=== PATIENT | male | born 1965 | race African-American/Black ===

== ENCOUNTER 2024-06-21 04:55 | Inpatient (IN) | payer MEDICARE, OTHER ==
[~2024-06-21] VITALS: Ht 175.3 cm; Wt 88.5 kg
[2024-06-21 05:53] LABS: BASOPHILS % (AUTO) 0.5 % (0.0-2.0); EOSINOPHILS # (AUTO) 0.1 K/uL (0.0-0.7); EOSINOPHILS % (AUTO) 1.4 % (0.0-6.0); HEMATOCRIT 31 % (39-51); HEMOGLOBIN 10.1 g/dL (13.5-17.5); LYMPHOCYTES # (AUTO) 1.3 K/uL (0.8-4.8); LYMPHOCYTES % (AUTO) 20.4 % (20.0-44.0); MEAN CORPUSCULAR HEMOGLOBIN 28 PG (26.0-33.0); MEAN CORPUSCULAR HGB CONC 33 g/dl (31.0-36.0); MEAN CORPUSCULAR VOLUME 85 fL (80-96); MONOCYTES # (AUTO) 0.5 K/uL (0.1-1.30); MONOCYTES % (AUTO) 7.5 % (2.0-12.0); NEUTROPHILS # (AUTO) 4.6 K/uL (1.8-8.9); NEUTROPHILS % (AUTO) 70.2 % (43.0-81.0); PLATELET COUNT (AUTO) 350 K/uL (150-450); RED CELL DISTRIBUTION WIDTH 16.6 % (11.5-15.0); WHITE BLOOD COUNT (AUTO) 6.6 K/uL (4.3-11.0)
[2024-06-21 06:07] LABS: CALCIUM, SERUM 9.5 mg/dL (8.5-10.1); CARBON DIOXIDE 30 mmol/L (21-32); CHLORIDE 99 mmol/L (98-107); GLUCOSE 92 mg/dL (74-106); POTASSIUM 3.5 mmol/L (3.5-5.1); SODIUM SERUM 136 mmol/L (136-145); UREA NITROGEN, BLOOD 15 mg/dL (7-18)
[2024-06-21 06:13] LABS: ALANINE AMINOTRANSFERASE 24 U/L (12-78); ALBUMIN 3.7 g/dL (3.4-5.0); ALCOHOL, BLOOD < 3 mg/dL (0-10); ALKALINE PHOSPHATASE 64 U/L (46-116); ASPARTATE AMINOTRANSFERASE 30 U/L (15-37); BILIRUBIN,DIRECT 0.2 mg/dL (0.0-0.2); BILIRUBIN,TOTAL 0.6 mg/dL (0.2-1.0); TOTAL PROTEIN, SERUM 7.7 g/dL (6.4-8.2)
[2024-06-21 06:20] LABS: ACETAMINOPHEN <10 ug/ml (10-30); SALICYLATE 0.6 mg/dL (2.8-20.0)
[2024-06-21 06:44] LABS: APPEARANCE,URINE CLEAR (CLEAR); BILIRUBIN,URINE 1+ (NEGATIVE); BLOOD, URINE TRACE-INTA Ery/uL (NEGATIVE); COLOR,URINE DARK YELLOW (YELLOW); KETONES,URINE 1+ mg/dL (NEGATIVE); LEUKOCYTE ESTERASE ,URINE NEGATIVE (NEGATIVE); NITRITE, URINE NEGATIVE (NEGATIVE); PROTEIN,URINE 1+ mg/dl (NEGATIVE); UGLUCOSE NEGATIVE (NEGATIVE); UROBILINOGEN,URINE 0.2 EU/dL (0.2)
[2024-06-21 06:54] LABS: AMPHETAMINE, URINE NEGATIVE (NEGATIVE); BARBITURATE, URINE NEGATIVE (NEGATIVE); BENZODIAZEPINE, URINE NEGATIVE (NEGATIVE); CANNABINOID, URINE NEGATIVE (NEGATIVE); COCCAINE, URINE NEGATIVE (NEGATIVE); OPIATE, URINE NEGATIVE (NEGATIVE); PHENCYCLIDINE SCREEN,URINE NEGATIVE (NEGATIVE)
[2024-06-21 07:07] LABS: ADD URINE CULTURE NO; BACTERIA,URINE Rare /HPF (None Seen); SQUAMOUS EPITHELIAL CELL,UR Few /HPF (None Seen); WBC,URINE 0-2 /HPF (0-3)
[2024-06-21] MEDS ORDERED: ACET-868 PO (11:25)
[2024-06-21] MEDS ORDERED: NA P133E RC (11:25)
[2024-06-21] MEDS ORDERED: BISA10SU11 RC (11:25)
[2024-06-21] MEDS ORDERED: ARIP5TAB10 PO (11:25)
[2024-06-21] MEDS ORDERED: DOCU100T2 PO (11:25)
[2024-06-21] MEDS ORDERED: HYDR-4209 PO (11:25)
[2024-06-21] MEDS ORDERED: FAMO20TA80 PO (11:25)
[2024-06-21] MEDS ORDERED: LEVE1000 PO (11:25)
[2024-06-21] MEDS ORDERED: MAGN400O6 PO (11:25)
[2024-06-21] MEDS ORDERED: AMLO10TA4 PO (11:25)
[2024-06-21] MEDS ORDERED: CRAN200C PO (11:25)
[2024-06-21] MEDS ORDERED: HYDR-4303 PO (11:25)
[2024-06-21] MEDS ORDERED: MAG HYDROX/AL HYDROX/SIMETH 30 ML UDC PO PRN (12:30)
[2024-06-21] MEDS: BLOOD SUGAR DIAGNOSTIC 1 EACH STRIP IN ONE (12:39)
[2024-06-21 13:21] VITALS: BP 148/83; TEMP 98.2; O2SAT 98
[2024-06-21 16:00] VITALS: BP 156/92; TEMP 98.6; O2SAT 98
[2024-06-21 20:00] VITALS: BP 168/88; TEMP 98.4; O2SAT 100
[2024-06-21] MEDS ORDERED: HYDROCODONE/APAP 5/325MG TABLET PO PRN ×2 (20:30)
[2024-06-21] MEDS: FAMOTIDINE (20 MG) 20 MG TABLET PO SCH (22:05)
[2024-06-21] MEDS: LEVETIRACETAM (250 MG) 250 MG TABLET PO SCH (22:05)
[2024-06-21] MEDS: NITROFURANTOIN/MONOHYDRATE MACROCRYSTALS 100 MG CAPSULE PO SCH (23:39)
[2024-06-22 07:52] LABS: CREATININE 0.8 mg/dL (0.6-1.3)
[2024-06-22 07:54] LABS: CHOLESTEROL 126 mg/dL (<200); HDL CHOLESTEROL 47 mg/dL (40-60); LDL 70 mg/dL (0-99); TRIGLYCERIDES 19 mg/dL (30-150)
[2024-06-22 07:57] LABS: ALBUMIN 3.8 g/dL (3.4-5.0); BILIRUBIN,TOTAL 0.5 mg/dL (0.2-1.0); CALCIUM, SERUM 9.4 mg/dL (8.5-10.1); CREATININE 0.8 mg/dL (0.6-1.3); POTASSIUM 3.9 mmol/L (3.5-5.1)
[2024-06-22 08:00] VITALS: BP 155/90; TEMP 97.7; O2SAT 98
[2024-06-22] MEDS: DOCUSATE SODIUM 100 MG CAPSULE PO SCH (08:16)
[2024-06-22] MEDS: AMLODIPINE BESYLATE 10 MG TABLET PO SCH (08:16)
[2024-06-22] MEDS ORDERED: ARIPIPRAZOLE 5 MG TABLET PO SCH (09:00)
[2024-06-22] MEDS ORDERED: Medication Not On Formulary EA (Cranberry Extract (Cranberry) 450 MG) PO SCH (09:00)
[2024-06-22] MEDS: risperiDONE 1 MG TABLET PO SCH (12:45)
[2024-06-22] MEDS: BENZTROPINE MESYLATE (1 MG) 1 MG TABLET PO SCH (12:46)
[2024-06-22 16:00] VITALS: BP 151/91; TEMP 98.4; O2SAT 99
[2024-06-22 20:27] VITALS: BP 154/98; TEMP 98.4; O2SAT 99
[2024-06-23 08:00] VITALS: BP 112/76; TEMP 97.8; O2SAT 98
[2024-06-23 16:00] VITALS: BP 120/82; TEMP 98.2; O2SAT 97
[2024-06-23 20:40] VITALS: BP 147/90; TEMP 98; O2SAT 100
[2024-06-23] MEDS: risperiDONE 1 MG TABLET PO SCH (21:17)
[2024-06-23] MEDS: TEMAZEPAM 7.5 MG CAPSULE PO PRN (23:43)
[2024-06-24 08:00] VITALS: BP 114/86; TEMP 98.7; O2SAT 100
[2024-06-24] MEDS: MAGNESIUM HYDROXIDE 30 ML UDC PO PRN (10:01)
[2024-06-24 16:00] VITALS: BP 124/99; TEMP 97.8; O2SAT 99
[2024-06-24 20:17] VITALS: BP 147/90; TEMP 98.3; O2SAT 97
[2024-06-25 08:00] VITALS: BP 147/85; TEMP 98.7; O2SAT 100
[2024-06-25] MEDS: LORAZEPAM 0.5 MG TABLET PO PRN (08:53)
[2024-06-25 16:00] VITALS: BP 139/89; TEMP 97.9; O2SAT 100
[2024-06-25] MEDS: risperiDONE 1 MG TABLET PO SCH ×2 (16:53→21:36)
[2024-06-25 20:11] VITALS: BP 125/91; TEMP 98.3; O2SAT 100
[2024-06-26 08:00] VITALS: BP 139/87; TEMP 98.7; O2SAT 100
[2024-06-26 16:00] VITALS: BP 119/80; TEMP 98.6; O2SAT 99
[2024-06-26 20:09] VITALS: BP 116/76; TEMP 98.8; O2SAT 100
[2024-06-27 08:00] VITALS: BP 136/85; TEMP 98; O2SAT 100
[2024-06-27 16:00] VITALS: BP 140/93; TEMP 97.9; O2SAT 99
[2024-06-27 20:00] VITALS: BP 125/84; TEMP 97.7; O2SAT 100
[2024-06-27] MEDS: risperiDONE 1 MG TABLET PO SCH (21:13)
[2024-06-28 08:00] VITALS: BP_SYST 157; TEMP 98; O2SAT 100
[2024-06-28 16:11] VITALS: BP_SYST 145; BP_DIAS 74; BP_DIAS 94; TEMP 97.8; TEMP 98.7; O2SAT 98
[2024-06-28 20:00] VITALS: BP 128/81; TEMP 98.3; O2SAT 100
[2024-06-29 08:00] VITALS: BP 129/85; TEMP 97.9; O2SAT 100
[2024-06-29 16:00] VITALS: BP 124/78; TEMP 98.3; O2SAT 100
[2024-06-29 21:31] VITALS: BP 166/94; TEMP 98; O2SAT 98
[2024-06-30 08:00] VITALS: BP 137/84; TEMP 98.1; O2SAT 98
[2024-06-30 16:22] VITALS: BP 147/79; TEMP 98.2; O2SAT 97
[2024-06-30 20:26] VITALS: BP 147/81; TEMP 98.4; O2SAT 98
[2024-07-01 08:00] VITALS: BP 138/86; TEMP 98.4; O2SAT 97
[2024-07-01] MEDS: risperiDONE 1 MG TABLET PO SCH (12:23)
[2024-07-01 16:00] VITALS: BP 136/75; TEMP 98.6; O2SAT 99
[2024-07-01 20:35] VITALS: BP 139/76; TEMP 98; O2SAT 98
[2024-07-02 08:00] VITALS: BP_SYST 132; BP_SYST 156; BP_DIAS 81; BP_DIAS 83; TEMP 97.8; TEMP 98.7; O2SAT 100; O2SAT 98
[2024-07-02] MEDS: BENZTROPINE MESYLATE (1 MG) 1 MG TABLET PO SCH (12:54)
[2024-07-02] MEDS: risperiDONE 1 MG TABLET PO SCH ×2 (12:54→17:04)
[2024-07-02] MEDS ORDERED: risperiDONE 1 MG TABLET PO SCH (13:00)
[2024-07-03 08:00] VITALS: BP 144/87; TEMP 97.9; O2SAT 97
[2024-07-03 16:00] VITALS: BP 132/83; TEMP 98; O2SAT 100
[2024-07-03 20:00] VITALS: BP 129/80; TEMP 98.1; O2SAT 100
[2024-07-04 08:00] VITALS: BP 137/78; TEMP 97.6; O2SAT 99
[2024-07-04 16:00] VITALS: BP 140/81; TEMP 97.9; O2SAT 97
[2024-07-05 08:00] VITALS: BP 137/83; TEMP 98; O2SAT 99
[2024-07-05 08:14] VITALS: BP 137/83
[2024-07-05] MEDS: ACETAMINOPHEN 325 MG TABLET PO PRN (13:45)
[2024-07-05 14:47] VITALS: TEMP 99
== END 2024-07-05 17:35 | DRG 885 ==
LOC: ER 05:05 → GPS 11:43
PROVIDERS: ADMIT Nurse Practitioner Psychiatric/Mental Health; ATTEND Nurse Practitioner Family
DX: F20.9 Schizophrenia, unspecified (principal); G93.41 Metabolic encephalopathy; N39.0 Urinary tract infection, site not specified; F39 Unspecified mood [affective] disorder; I10 Essential (primary) hypertension; Z20.822 Contact with and (suspected) exposure to COVID-19; E11.9 Type 2 diabetes mellitus without complications; K21.9 Gastro-esophageal reflux disease without esophagitis; D63.8 Anemia in other chronic diseases classified elsewhere; G40.909 Epilepsy, unspecified, not intractable, without status epilepticus; G89.29 Other chronic pain; Z87.820 Personal history of traumatic brain injury; Z91.81 History of falling; Z87.828 Personal history of other (healed) physical injury and trauma; Z79.899 Other long term (current) drug therapy; F29 Unspecified psychosis not due to a substance or known physiological condition; Z73.6 Limitation of activities due to disability; B96.89 Other specified bacterial agents as the cause of diseases classified elsewhere; G31.84 Mild cognitive impairment of uncertain or unknown etiology
CPT/HCPCS: 36415; 80048-TC; 80053-TC; 80061-TC; 80076-TC; 81001; 82565-TC; 85025-TC; 87086-TC; 97112-TC; 97116-TC; 97530-TC; G0480

== ENCOUNTER 2024-07-19 23:45 | Inpatient (IN) | payer MEDICARE, OTHER ==
[~2024-07-19] VITALS: Ht 167.6 cm; Wt 72.6 kg
[~2024-07-19 23:45] MED LIST: ACET-868 PO; AMLO10TA4 PO; ARIP5TAB10 PO; BISA10SU11 RC; CRAN200C PO; DOCU100T2 PO; FAMO20TA80 PO; HYDR-4209 PO; HYDR-4303 PO; LEVE1000 PO; MAGN400O6 PO; NA P133E RC
[2024-07-20 00:54] LABS: BASOPHILS % (AUTO) 0.7 % (0.0-2.0); EOSINOPHILS # (AUTO) 0.2 K/uL (0.0-0.7); EOSINOPHILS % (AUTO) 2.9 % (0.0-6.0); HEMATOCRIT 30 % (39-51); HEMOGLOBIN 9.6 g/dL (13.5-17.5); LYMPHOCYTES # (AUTO) 1.5 K/uL (0.8-4.8); LYMPHOCYTES % (AUTO) 26.6 % (20.0-44.0); MEAN CORPUSCULAR HEMOGLOBIN 27 PG (26.0-33.0); MEAN CORPUSCULAR HGB CONC 32 g/dl (31.0-36.0); MEAN CORPUSCULAR VOLUME 84 fL (80-96); MONOCYTES # (AUTO) 0.5 K/uL (0.1-1.30); MONOCYTES % (AUTO) 9.5 % (2.0-12.0); NEUTROPHILS # (AUTO) 3.5 K/uL (1.8-8.9); NEUTROPHILS % (AUTO) 60.3 % (43.0-81.0); PLATELET COUNT (AUTO) 479 K/uL (150-450); RED BLOOD CELL COUNT(AUTO) 3.55 MIL/uL (4.5-6.0); RED CELL DISTRIBUTION WIDTH 16.6 % (11.5-15.0); WHITE BLOOD COUNT (AUTO) 5.8 K/uL (4.3-11.0)
[2024-07-20 01:01] LABS: CARBON DIOXIDE 31 mmol/L (21-32); CHLORIDE 103 mmol/L (98-107); CREATININE 0.8 mg/dL (0.6-1.3); GLUCOSE 99 mg/dL (74-106); POTASSIUM 3.8 mmol/L (3.5-5.1); SODIUM SERUM 140 mmol/L (136-145); UREA NITROGEN, BLOOD 14 mg/dL (7-18)
[2024-07-20 01:09] LABS: ALANINE AMINOTRANSFERASE 27 U/L (12-78); ALBUMIN 3.4 g/dL (3.4-5.0); ALCOHOL, BLOOD < 3 mg/dL (0-10); ALKALINE PHOSPHATASE 51 U/L (46-116); ASPARTATE AMINOTRANSFERASE 20 U/L (15-37); BILIRUBIN,DIRECT 0.1 mg/dL (0.0-0.2); BILIRUBIN,TOTAL 0.2 mg/dL (0.2-1.0); TOTAL PROTEIN, SERUM 7.1 g/dL (6.4-8.2)
[2024-07-20 01:10] LABS: ACETAMINOPHEN <10 ug/ml (10-30)
[2024-07-20 02:00] LABS: AMPHETAMINE, URINE NEGATIVE (NEGATIVE); BARBITURATE, URINE NEGATIVE (NEGATIVE); BENZODIAZEPINE, URINE NEGATIVE (NEGATIVE); CANNABINOID, URINE NEGATIVE (NEGATIVE); COCCAINE, URINE NEGATIVE (NEGATIVE); OPIATE, URINE NEGATIVE (NEGATIVE); PHENCYCLIDINE SCREEN,URINE NEGATIVE (NEGATIVE)
[2024-07-20 02:09] LABS: APPEARANCE,URINE CLEAR (CLEAR); BILIRUBIN,URINE NEGATIVE (NEGATIVE); BLOOD, URINE NEGATIVE Ery/uL (NEGATIVE); COLOR,URINE YELLOW (YELLOW); KETONES,URINE NEGATIVE (NEGATIVE); LEUKOCYTE ESTERASE ,URINE NEGATIVE (NEGATIVE); NITRITE, URINE NEGATIVE (NEGATIVE); PROTEIN,URINE NEGATIVE (NEGATIVE); UGLUCOSE NEGATIVE (NEGATIVE); UROBILINOGEN,URINE 0.2 EU/dL (0.2)
[2024-07-20 03:43] VITALS: BP 125/78; TEMP 98; O2SAT 98
[2024-07-20] MEDS: BLOOD SUGAR DIAGNOSTIC 1 EACH STRIP IN ONE (03:50)
[2024-07-20] MEDS ORDERED: BENZ1TAB7 PO (03:59)
[2024-07-20] MEDS ORDERED: ACETAMINOPHEN 325 MG TABLET PO PRN (04:00)
[2024-07-20] MEDS ORDERED: LORAZEPAM 0.5 MG TABLET PO PRN (04:00)
[2024-07-20] MEDS ORDERED: TEMAZEPAM 7.5 MG CAPSULE PO PRN (04:00)
[2024-07-20] MEDS ORDERED: MAG HYDROX/AL HYDROX/SIMETH 30 ML UDC PO PRN (04:00)
[2024-07-20] MEDS ORDERED: MAGNESIUM HYDROXIDE 30 ML UDC PO PRN (04:00)
[2024-07-20] MEDS ORDERED: LORA-259 PO (04:02)
[2024-07-20] MEDS ORDERED: RISP1TAB97 PO (04:04)
[2024-07-20] MEDS ORDERED: RISP2TAB85 PO ×2 (04:05→04:06)
[2024-07-20 08:00] VITALS: BP 156/87; TEMP 98; O2SAT 100
[2024-07-20] MEDS: BENZTROPINE MESYLATE (1 MG) 1 MG TABLET PO SCH (09:37)
[2024-07-20] MEDS: risperiDONE 1 MG TABLET PO SCH ×2 (09:37→21:35)
[2024-07-20] MEDS ORDERED: HYDROCODONE/APAP 5/325MG TABLET PO PRN (10:00)
[2024-07-20] MEDS: DOCUSATE SODIUM 100 MG CAPSULE PO SCH (10:00)
[2024-07-20] MEDS: AMLODIPINE BESYLATE 10 MG TABLET PO SCH (10:00)
[2024-07-20] MEDS: FAMOTIDINE (20 MG) 20 MG TABLET PO SCH (10:00)
[2024-07-20] MEDS: LEVETIRACETAM (250 MG) 250 MG TABLET PO SCH (10:00)
[2024-07-20 16:00] VITALS: BP 118/84; TEMP 98.7; O2SAT 100
[2024-07-20 20:20] VITALS: BP 149/79; TEMP 98.5; O2SAT 100
[2024-07-20 21:00] VITALS: BP 130/75; TEMP 98; O2SAT 99
[2024-07-21] MEDS: LORAZEPAM 0.5 MG TABLET PO PRN (01:28)
[2024-07-21 07:52] LABS: CALCIUM, SERUM 8.8 mg/dL (8.5-10.1); CREATININE 0.8 mg/dL (0.6-1.3); POTASSIUM 4.1 mmol/L (3.5-5.1)
[2024-07-21 08:00] VITALS: BP 121/72; TEMP 98; O2SAT 100
[2024-07-21 08:21] LABS: BASOPHILS % (AUTO) 0.4 % (0.0-2.0); EOSINOPHILS # (AUTO) 0.2 K/uL (0.0-0.7); EOSINOPHILS % (AUTO) 3.3 % (0.0-6.0); HEMATOCRIT 33 % (39-51); HEMOGLOBIN 10.5 g/dL (13.5-17.5); LYMPHOCYTES # (AUTO) 1.6 K/uL (0.8-4.8); LYMPHOCYTES % (AUTO) 30.2 % (20.0-44.0); MEAN CORPUSCULAR HEMOGLOBIN 27 PG (26.0-33.0); MEAN CORPUSCULAR HGB CONC 32 g/dl (31.0-36.0); MEAN CORPUSCULAR VOLUME 83 fL (80-96); MONOCYTES # (AUTO) 0.5 K/uL (0.1-1.30); MONOCYTES % (AUTO) 10.5 % (2.0-12.0); NEUTROPHILS # (AUTO) 2.9 K/uL (1.8-8.9); NEUTROPHILS % (AUTO) 55.6 % (43.0-81.0); PLATELET COUNT (AUTO) 486 K/uL (150-450); RED BLOOD CELL COUNT(AUTO) 3.93 MIL/uL (4.5-6.0); RED CELL DISTRIBUTION WIDTH 16.2 % (11.5-15.0); WHITE BLOOD COUNT (AUTO) 5.2 K/uL (4.3-11.0)
[2024-07-21 16:00] VITALS: BP 126/76; TEMP 98.6; O2SAT 96
[2024-07-21 22:48] VITALS: BP 132/83; TEMP 98.3; O2SAT 96
[2024-07-22 08:00] VITALS: BP 139/98; TEMP 98.7; O2SAT 100
[2024-07-22 16:00] VITALS: BP 160/87; TEMP 97.9; O2SAT 97
[2024-07-22 20:00] VITALS: BP 144/93; TEMP 97.5; O2SAT 99
[2024-07-22] MEDS: risperiDONE-M 0.5 MG TAB.RAPDIS PO SCH (21:26)
[2024-07-23 08:00] VITALS: BP 127/80; TEMP 97.8; O2SAT 99
[2024-07-23] MEDS: risperiDONE-M 0.5 MG TAB.RAPDIS PO SCH ×2 (09:00→21:15)
[2024-07-23] MEDS: DIVALPROEX SODIUM 125 MG CAP.SPRINK PO SCH (09:00)
[2024-07-23] MEDS ORDERED: OLANZAPINE 10 MG VIAL IM PRN (11:30)
[2024-07-23] MEDS ORDERED: risperiDONE-M 0.5 MG TAB.RAPDIS PO SCH ×2 (11:30→11:36)
[2024-07-23 15:59] VITALS: BP 143/78; TEMP 97.7; O2SAT 99
[2024-07-23 21:33] VITALS: BP 144/95; TEMP 98.4; O2SAT 97
[2024-07-24 08:00] VITALS: BP 145/97; TEMP 98; O2SAT 100
[2024-07-24 16:00] VITALS: BP 145/90; TEMP 98.1; O2SAT 99
[2024-07-24 20:00] VITALS: BP 145/86; TEMP 98.5; O2SAT 98
[2024-07-24 20:38] VITALS: BP 145/86; TEMP 98.5; O2SAT 98
[2024-07-24] MEDS: risperiDONE-M 0.5 MG TAB.RAPDIS PO SCH (21:11)
[2024-07-25 08:00] VITALS: BP 139/84; TEMP 97.8; O2SAT 98
[2024-07-25] MEDS: OLANZAPINE 10 MG VIAL IM PRN (09:17)
[2024-07-25 16:00] VITALS: BP 148/86; TEMP 98.2; O2SAT 100
[2024-07-25] MEDS ORDERED: OLANZAPINE 10 MG VIAL IM PRN (17:30)
[2024-07-25] MEDS: risperiDONE-M 0.5 MG TAB.RAPDIS PO SCH (21:46)
[2024-07-25 21:48] VITALS: BP 145/90; TEMP 98.4; O2SAT 100
[2024-07-25 22:06] VITALS: BP 145/90; TEMP 98.4; O2SAT 96
[2024-07-26 08:00] VITALS: BP 126/87; TEMP 97.7; O2SAT 99
[2024-07-26 08:02] VITALS: BP 126/87; TEMP 97.7; O2SAT 99
[2024-07-26] MEDS: risperiDONE-M 0.5 MG TAB.RAPDIS PO SCH (08:17)
[2024-07-26 16:00] VITALS: BP 143/91; TEMP 98; O2SAT 100
[2024-07-26 16:13] VITALS: BP 143/91; TEMP 98; O2SAT 100
[2024-07-26] MEDS: DIVALPROEX SODIUM 500 MG TABLET.DR PO SCH (17:33)
[2024-07-26 20:48] VITALS: BP 142/95; TEMP 98.3; O2SAT 99
[2024-07-26] MEDS: TEMAZEPAM 7.5 MG CAPSULE PO PRN (23:33)
[2024-07-27 08:00] VITALS: BP 122/93; TEMP 98.1; O2SAT 98
[2024-07-27 16:00] VITALS: BP 124/79; TEMP 98.1; O2SAT 94
[2024-07-27 20:08] VITALS: BP 134/74; TEMP 98.3; O2SAT 99
[2024-07-28 08:00] VITALS: BP 121/83; TEMP 98.6; O2SAT 100
[2024-07-28 16:00] VITALS: BP 142/87; TEMP 98.7; O2SAT 99
[2024-07-28 20:31] VITALS: BP 125/79; TEMP 97.8; O2SAT 98
[2024-07-28] MEDS: risperiDONE-M 0.5 MG TAB.RAPDIS PO SCH (21:43)
[2024-07-29 08:00] VITALS: BP 137/87; TEMP 98.6; O2SAT 99
[2024-07-29] MEDS: risperiDONE-M 0.5 MG TAB.RAPDIS PO ONE (13:26)
[2024-07-29 16:00] VITALS: BP 139/80; TEMP 97.7; O2SAT 98
[2024-07-29] MEDS: risperiDONE-M 0.5 MG TAB.RAPDIS PO SCH (16:11)
[2024-07-29 20:00] VITALS: BP 135/80; TEMP 97.9; O2SAT 79
[2024-07-30 08:00] VITALS: BP 145/86; TEMP 97.8; O2SAT 100
[2024-07-30 16:00] VITALS: BP 170/87; TEMP 98.1; O2SAT 98
[2024-07-30 20:42] VITALS: BP 140/84; TEMP 97.5; O2SAT 100
[2024-07-31 08:00] VITALS: BP 149/86; TEMP 97.8; O2SAT 98
[2024-07-31 16:09] VITALS: BP 145/87; TEMP 98; O2SAT 97
[2024-07-31 20:00] VITALS: BP 136/70; TEMP 98.6; O2SAT 100
[2024-08-01 08:00] VITALS: BP 144/84; TEMP 97.9; O2SAT 100
[2024-08-01 08:54] VITALS: BP 144/84
== END 2024-08-01 13:18 | DRG 885 ==
LOC: ER 23:48 → GPS 07-20 01:55
PROVIDERS: ADMIT Nurse Practitioner Psychiatric/Mental Health; ATTEND Internal Medicine
DX: F20.9 Schizophrenia, unspecified (principal); F03.918 Unspecified dementia, unspecified severity, with other behavioral disturbance; F03.92 Unspecified dementia, unspecified severity, with psychotic disturbance; F03.94 Unspecified dementia, unspecified severity, with anxiety; F29 Unspecified psychosis not due to a substance or known physiological condition; G40.909 Epilepsy, unspecified, not intractable, without status epilepticus; K21.9 Gastro-esophageal reflux disease without esophagitis; D64.9 Anemia, unspecified; F41.9 Anxiety disorder, unspecified; E11.9 Type 2 diabetes mellitus without complications; Z79.899 Other long term (current) drug therapy; I10 Essential (primary) hypertension
CPT/HCPCS: 36415; 80048-TC; 80061-TC; 80076-TC; 80164-TC; 85025-TC; 87081-TC; 98960; G0480; J3490

== ENCOUNTER 2024-08-21 18:10 | Inpatient (IN) | payer MEDICARE, OTHER ==
[~2024-08-21] VITALS: Ht 182.9 cm; Wt 95.3 kg
[~2024-08-21 18:10] MED LIST changes: -ARIP5TAB10 PO; +BENZ1TAB7 PO; -CRAN200C PO; +LORA-259 PO; +RISP1TAB97 PO; +RISP2TAB85 PO
[2024-08-21 18:50] LABS: BASOPHILS # (AUTO) 0.1 K/uL (0.0-0.2); BASOPHILS % (AUTO) 0.9 % (0.0-2.0); EOSINOPHILS # (AUTO) 0.2 K/uL (0.0-0.7); EOSINOPHILS % (AUTO) 3.7 % (0.0-6.0); HEMATOCRIT 33 % (39-51); HEMOGLOBIN 10.9 g/dL (13.5-17.5); LYMPHOCYTES # (AUTO) 1.8 K/uL (0.8-4.8); LYMPHOCYTES % (AUTO) 30.6 % (20.0-44.0); MEAN CORPUSCULAR HEMOGLOBIN 27 PG (26.0-33.0); MEAN CORPUSCULAR HGB CONC 33 g/dl (31.0-36.0); MEAN CORPUSCULAR VOLUME 83 fL (80-96); MONOCYTES # (AUTO) 0.6 K/uL (0.1-1.30); MONOCYTES % (AUTO) 10.1 % (2.0-12.0); NEUTROPHILS # (AUTO) 3.2 K/uL (1.8-8.9); NEUTROPHILS % (AUTO) 54.7 % (43.0-81.0); PLATELET COUNT (AUTO) 287 K/uL (150-450); RED BLOOD CELL COUNT(AUTO) 4.02 MIL/uL (4.5-6.0); WHITE BLOOD COUNT (AUTO) 5.9 K/uL (4.3-11.0)
[2024-08-21] MEDS ORDERED: DIVA-78 PO (18:54)
[2024-08-21] MEDS ORDERED: BENZ0.5T43 PO (18:54)
[2024-08-21] MEDS ORDERED: MAG30ORA PO (18:54)
[2024-08-21] MEDS ORDERED: OLAN10VI IM (18:54)
[2024-08-21] MEDS ORDERED: RISP2TAB85 PO (18:54)
[2024-08-21 19:08] LABS: ALANINE AMINOTRANSFERASE 28 U/L (12-78); ALBUMIN 3.7 g/dL (3.4-5.0); ALCOHOL, BLOOD < 3 mg/dL (0-10); ALKALINE PHOSPHATASE 62 U/L (46-116); ASPARTATE AMINOTRANSFERASE 21 U/L (15-37); BILIRUBIN,DIRECT 0.1 mg/dL (0.0-0.2); BILIRUBIN,TOTAL 0.2 mg/dL (0.2-1.0); CALCIUM, SERUM 8.9 mg/dL (8.5-10.1); CARBON DIOXIDE 33 mmol/L (21-32); CHLORIDE 103 mmol/L (98-107); GLUCOSE 85 mg/dL (74-106); SODIUM SERUM 141 mmol/L (136-145); TOTAL PROTEIN, SERUM 7.4 g/dL (6.4-8.2); UREA NITROGEN, BLOOD 13 mg/dL (7-18)
[2024-08-21 19:10] LABS: ACETAMINOPHEN <10 ug/ml (10-30); SALICYLATE 0.4 mg/dL (2.8-20.0)
[2024-08-21 19:13] LABS: APPEARANCE,URINE CLEAR (CLEAR); BILIRUBIN,URINE NEGATIVE (NEGATIVE); BLOOD, URINE TRACE-INTA Ery/uL (NEGATIVE); COLOR,URINE YELLOW (YELLOW); KETONES,URINE NEGATIVE (NEGATIVE); LEUKOCYTE ESTERASE ,URINE NEGATIVE (NEGATIVE); NITRITE, URINE NEGATIVE (NEGATIVE); PROTEIN,URINE NEGATIVE (NEGATIVE); UGLUCOSE NEGATIVE (NEGATIVE); UROBILINOGEN,URINE 0.2 EU/dL (0.2)
[2024-08-21 19:20] LABS: ADD URINE CULTURE NO; BACTERIA,URINE None seen /HPF (None Seen); RBC,URINE 0-2 /HPF (0-2); SQUAMOUS EPITHELIAL CELL,UR None Seen /HPF (None Seen); WBC,URINE 0-2 /HPF (0-3)
[2024-08-21 19:26] LABS: AMPHETAMINE, URINE NEGATIVE (NEGATIVE); BARBITURATE, URINE NEGATIVE (NEGATIVE); BENZODIAZEPINE, URINE NEGATIVE (NEGATIVE); CANNABINOID, URINE NEGATIVE (NEGATIVE); COCCAINE, URINE NEGATIVE (NEGATIVE); OPIATE, URINE NEGATIVE (NEGATIVE); PHENCYCLIDINE SCREEN,URINE NEGATIVE (NEGATIVE)
[2024-08-21] MEDS ORDERED: MAGNESIUM HYDROXIDE 30 ML UDC PO PRN ×2 (23:00→23:30)
[2024-08-21] MEDS ORDERED: MAG HYDROX/AL HYDROX/SIMETH 30 ML UDC PO PRN ×2 (23:00→23:30)
[2024-08-21] MEDS ORDERED: ACETAMINOPHEN 325 MG TABLET PO PRN ×2 (23:00→23:30)
[2024-08-21 23:30] VITALS: BP 151/73; TEMP 98.4; O2SAT 99
[2024-08-21] MEDS ORDERED: LORAZEPAM 0.5 MG TABLET PO PRN (23:30)
[2024-08-21] MEDS ORDERED: TEMAZEPAM 7.5 MG CAPSULE PO PRN ×2 (23:30)
[2024-08-21] MEDS: BLOOD SUGAR DIAGNOSTIC 1 EACH STRIP IN ONE (23:30)
[2024-08-22 03:48] VITALS: BP 137/72; TEMP 98.4; O2SAT 98
[2024-08-22 07:37] LABS: ALBUMIN 3.8 g/dL (3.4-5.0); BILIRUBIN,TOTAL 0.2 mg/dL (0.2-1.0); CALCIUM, SERUM 9.1 mg/dL (8.5-10.1); CREATININE 0.9 mg/dL (0.6-1.3); POTASSIUM 4.1 mmol/L (3.5-5.1); TOTAL PROTEIN, SERUM 7.7 g/dL (6.4-8.2)
[2024-08-22 07:40] LABS: CHOLESTEROL 163 mg/dL (<200); HDL CHOLESTEROL 48 mg/dL (40-60); LDL 109 mg/dL (0-99); TRIGLYCERIDES 48 mg/dL (30-150)
[2024-08-22 07:52] LABS: THYROID STIMULATING HORMONE 14.64 uIU/mL (0.358-3.74)
[2024-08-22 08:37] VITALS: BP 128/80; TEMP 97.2; O2SAT 100
[2024-08-22] MEDS: FAMOTIDINE (20 MG) 20 MG TABLET PO SCH (08:51)
[2024-08-22] MEDS: AMLODIPINE BESYLATE 10 MG TABLET PO SCH (08:51)
[2024-08-22] MEDS: DOCUSATE SODIUM 100 MG CAPSULE PO SCH (08:51)
[2024-08-22] MEDS: BENZTROPINE MESYLATE (1 MG) 1 MG TABLET PO SCH (08:51)
[2024-08-22] MEDS: DIVALPROEX SODIUM 500 MG TABLET.DR PO SCH (08:51)
[2024-08-22] MEDS: LEVETIRACETAM (250 MG) 250 MG TABLET PO SCH (08:51)
[2024-08-22 16:00] VITALS: BP 153/89; TEMP 98.2; O2SAT 100
[2024-08-22] MEDS: risperiDONE 1 MG TABLET PO SCH (16:39)
[2024-08-22 20:00] VITALS: BP 148/76; TEMP 98; O2SAT 100
[2024-08-22] MEDS: OLANZAPINE 5 MG TABLET PO SCH (21:46)
[2024-08-23 08:00] VITALS: BP 156/97; TEMP 98; O2SAT 99
[2024-08-23 16:00] VITALS: BP 149/85; TEMP 98; O2SAT 100
[2024-08-24] MEDS: LORAZEPAM 0.5 MG TABLET PO PRN (04:46)
[2024-08-24 08:00] VITALS: BP 162/92; TEMP 98; O2SAT 99
[2024-08-24 11:36] VITALS: BP 147/73
[2024-08-24 16:00] VITALS: BP 126/71; TEMP 98.1; O2SAT 99
[2024-08-24 21:32] VITALS: BP 140/75; TEMP 97.7; O2SAT 100
[2024-08-25 08:00] VITALS: BP 138/93; TEMP 98.6; O2SAT 98
[2024-08-25 16:00] VITALS: BP 122/59; TEMP 98.8; O2SAT 98
[2024-08-25 21:21] VITALS: BP 150/90; TEMP 98.8; O2SAT 100
[2024-08-26 08:00] VITALS: BP 122/85; TEMP 98; O2SAT 98
[2024-08-26] MEDS: DIVALPROEX SODIUM 250 MG TABLET.DR PO SCH (12:02)
[2024-08-26 16:00] VITALS: BP 122/78; TEMP 98.4; O2SAT 99
[2024-08-26 19:55] VITALS: BP 149/85; TEMP 98.4; O2SAT 100
[2024-08-27 08:00] VITALS: BP 124/83; TEMP 98; O2SAT 100
[2024-08-27 16:00] VITALS: BP 137/75; TEMP 97.7; O2SAT 100
[2024-08-27 20:00] VITALS: BP 127/80; TEMP 98.6; O2SAT 98
[2024-08-28 08:00] VITALS: BP 128/83; TEMP 98.6; O2SAT 99
[2024-08-28 16:00] VITALS: BP 137/74; TEMP 97.7; O2SAT 99
[2024-08-28 19:48] VITALS: BP 134/67; TEMP 97.7; O2SAT 100
[2024-08-29 08:00] VITALS: BP 141/76; TEMP 98.6; O2SAT 100
[2024-08-29 16:00] VITALS: BP 136/71; TEMP 98; O2SAT 95
[2024-08-29 20:00] VITALS: BP 147/86; TEMP 97.7; O2SAT 98
[2024-08-30 08:00] VITALS: BP 119/66; TEMP 98; O2SAT 100
[2024-08-30 16:00] VITALS: BP 158/80; TEMP 98.2; O2SAT 100
[2024-08-31 08:00] VITALS: BP 104/71; TEMP 98; O2SAT 97
[2024-08-31] MEDS: DIVALPROEX SODIUM 250 MG TABLET.DR PO SCH (12:18)
[2024-08-31 16:00] VITALS: BP 119/76; TEMP 97.5; O2SAT 98
[2024-08-31 21:22] VITALS: BP_SYST 133; BP_SYST 155; BP_DIAS 80; BP_DIAS 82; TEMP 97.8; O2SAT 97
[2024-09-01 08:00] VITALS: BP 150/82; TEMP 97.9; O2SAT 98
[2024-09-01] MEDS: LEVOTHYROXINE SODIUM 25 MCG TABLET PO SCH (12:50)
[2024-09-01 16:00] VITALS: BP 144/83; TEMP 98.3; O2SAT 97
[2024-09-01 20:26] VITALS: BP 153/77; TEMP 97.7; O2SAT 97
[2024-09-02 08:00] VITALS: BP 133/84; TEMP 97.9; O2SAT 100
[2024-09-02 15:43] VITALS: BP 122/78; TEMP 98.1; O2SAT 96
[2024-09-02 20:00] VITALS: BP 146/80; TEMP 98.8; O2SAT 98
[2024-09-03 08:00] VITALS: BP 135/59; TEMP 97.8; O2SAT 95
[2024-09-03 08:26] VITALS: BP 135/59
== END 2024-09-03 13:35 | DRG 885 ==
LOC: ER 18:20 → GPS 22:53
PROVIDERS: ADMIT Psychiatry & Neurology Psychosomatic Medicine; ATTEND Student in an Organized Health Care Education/Training Program
DX: F25.0 Schizoaffective disorder, bipolar type (principal); F29 Unspecified psychosis not due to a substance or known physiological condition; G40.909 Epilepsy, unspecified, not intractable, without status epilepticus; I10 Essential (primary) hypertension; K21.9 Gastro-esophageal reflux disease without esophagitis; M19.90 Unspecified osteoarthritis, unspecified site; G31.84 Mild cognitive impairment of uncertain or unknown etiology; Z79.899 Other long term (current) drug therapy; E11.9 Type 2 diabetes mellitus without complications; Z73.6 Limitation of activities due to disability; D63.8 Anemia in other chronic diseases classified elsewhere; R53.1 Weakness; F41.9 Anxiety disorder, unspecified; E03.9 Hypothyroidism, unspecified; R33.9 Retention of urine, unspecified; R94.6 Abnormal results of thyroid function studies
CPT/HCPCS: 36415; 80048-TC; 80053-TC; 80061-TC; 80076-TC; 80164-TC; 81001; 82962-TC; 84439-TC; 84443-TC; 85025-TC; 87081-TC; G0480